=== PATIENT | female | born 1980 | race Caucasian/White ===

== ENCOUNTER 2019-03-01 20:48 | Outpatient (CLI) | payer MEDICAID, SELFPAY ==
[2019-03-01] MEDS: Lactated Ringers 1,000 ML 999 ML IV (21:20)
[2019-03-01 21:40] VITALS: BMI 36.7
[2019-03-01] MEDS: Betamethasone/Betamethasone 30 MG/5 ML Vial 12 MG IM (21:57)
[2019-03-01 22:00] LABS: Mucous, Urine 0 SEEN /hpf (<or=2+); Red Blood Cells-Urine 0 SEEN /hpf (0-5)
[2019-03-01 22:02] LABS: Color, Urine Yellow (Yellow); Glucose, Dipstick Normal (Normal); Ketone-Dipstick 50 mg/dl (Negative); Leukocyte Esterase-Dipstick Negative /ul (Negative); Nitrite-Dipstick Negative (Negative); Occult Blood-Urine Negative /ul (Negative); Protein-Dipstick Negative (Negative); Specific Gravity, Urine 1.005 (1.002-1.030); Urine Bilirubin Dipstick Negative (Negative); Urine Clarity Clear (Clear); Urine Urobilinogen Normal (Normal); Urine pH 6.5 (5.0 - 8.0)
[2019-03-01 22:04] LABS: Hematocrit 35.3 % (37-47); Hemoglobin 11.9 g/dl (12.0-15.0); Mean Corp Hgb Conc 33.7 g/gl (32-36); Mean Corpuscular Hgb 30.7 pg (27.0-32.0); Mean Platelet Vol. 10.8 fl (6.2-12.0); Platelet Count 194 K/mm3 (150-450); RBC Distribution Width CV 13.2 % (11.6-14.6); RBC Distribution Width SD 43.6 fl (35.1-43.9); Red Blood Count 3.88 M/mm3 (4.2-5.4); Scan Indicated on CBC? Y/N NO; White Blood Count 13.2 K/mm3 (4.4-11.0)
[2019-03-01 22:08] LABS: Bacteria RARE /hpf (None Seen); Squamous Epithelial Cells - UA 0-5 SEEN /hpf (5-10); White Blood Cells 0-5 SEEN /hpf (0-5)
[2019-03-01 22:43] LABS: Partial Thromboplast Time 25.4 Seconds (24.1-36.2)
[2019-03-01 22:59] LABS: ALB/GLOB Ratio 0.7 RATIO (0.9-2.4); AST(SGOT) 25 U/L (15-37); Alanine Aminotransfer ALT/SGPT 16 U/L (13-56); Albumin, Serum 2.7 g/dL (3.2-5.0); Alkaline Phosphatase 100 U/L (45-117); Anion Gap 12 (5-15); BUN 6 mg/dL (7-18); BUN/Creat Ratio 9.8 RATIO (10-20); Calcium,Total 9.2 mg/dL (8.5-10.1); Chloride 106 mmol/L (98-107); Creatinine, Serum 0.61 mg/dL (0.55-1.02); EST Glomerular Filtration Rate 116 mL/min (>60); Est Glom Filt Rate - Afr Amer 141 mL/min (>60); Estimated Creatinine Clearance 107.98 ml/min; Glucose 59 mg/dL (74-106); Protein, Total 6.7 g/dL (6.4-8.2); Sodium Level 137 mmol/L (136-145)
[2019-03-01 23:08] LABS: Group B Strep DNA By PCR Negative (Negative)
[2019-03-01 23:09] LABS: Internal Control PASS; Probe Check PASS; Specimen Processing Control PASS
[2019-03-02 07:06] LABS: Bedside Glucose 70 mg/dL (70-110)
[2019-03-02 08:55] LABS: Amphetamine Urine VISTA NEGATIVE (<1000 ng/mL); Barbiturate Urine VISTA NEGATIVE (< 200 ng/mL); Benzodiazepine Urine VISTA NEGATIVE (< 200 ng/mL); Cocaine Urine VISTA NEGATIVE (< 300 ng/mL); Ecstacy Urine VISTA NEGATIVE (< 500 ng/mL); Methadone Urine VISTA NEGATIVE (< 300 ng/mL); PCP Urine VISTA NEGATIVE (< 25 ng/mL); THC Urine VISTA NEGATIVE (< 50 ng/mL); Vista UDS pH Range 6
[2019-03-04 17:50] LABS: HEPATITIS B SURFACE AG Negative (Negative); Hep C Antibodies <0.1 s/co ratio (0.0-0.9)
[2019-03-07 01:35] LABS: Rapid Plasmin Reagin (RPR) NONREACTIVE (NONREACTIVE)
--- NOTE | 2019-03-28 12:14 | OB.TRI.HP_ITS ---
History of Present Illness Date of Service: 03/31/19 Was patient seen by the physician?: No Reason For Visit: R/O LABOR Allergies No Known Allergies Allergy (Verified 03/01/19 21:41) Laboratory Studies: Laboratory Tests 03/01/19 03/01/19 03/01/19 Range/Units 21:27 21:14 21:10 WBC (4.4-11.0) K/mm3 RBC (4.2-5.4) M/mm3 Hgb (12.0-15.0) g/dl Hct (37-47) % MCV (81-99) fL MCH (27.0-32.0) pg MCHC (32-36) g/gl RDW (11.6-14.6) % RDW Differential (35.1-43.9) fl Plt Count (150-450) K/mm3 MPV (6.2-12.0) fl PT (11.7-14.9) SECONDS INR APTT (24.1-36.2) Seconds Sodium (136-145) mmol/L Potassium (3.5-5.1) mmol/L Chloride (98-107) mmol/L Carbon Dioxide (21.0-32.0) mmol/L Anion Gap (5-15) BUN (7-18) mg/dL Creatinine (0.55-1.02) mg/dL Estim Creat Clear Calc ml/min Est GFR (MDRD) Af Amer (>60) mL/min Est GFR (MDRD) Non-Af (>60) mL/min BUN/Creatinine Ratio (10-20) RATIO Glucose (74-106) mg/dL Calcium (8.5-10.1) mg/dL Total Bilirubin (0.20-1.00) mg/dL AST (15-37) U/L ALT (13-56) U/L Alkaline Phosphatase (45-117) U/L Total Protein (6.4-8.2) g/dL Albumin (3.2-5.0) g/dL Globulin (2.2-4.2) g/dL Albumin/Globulin Ratio (0.9-2.4) RATIO Urine Color (Yellow) Urine Clarity (Clear) Urine pH (5.0 - 8.0) Ur Specific [place] (1.002-1.030) Urine Protein (Negative) mg/dl Urine Glucose (UA) (Normal) mg/dl Urine Ketones (Negative) mg/dl Urine Occult Blood (Negative) /ul Urine Nitrite (Negative) Urine Bilirubin (Negative) mg/dL Urine Urobilinogen (Normal) mg/dl Ur Leukocyte Esterase (Negative) /ul Urine RBC (0-5) /hpf Urine WBC (0-5) /hpf Ur Squamous Epith Cells (5-10) /hpf Urine Bacteria (None Seen) /hpf Urine Mucus (<or=2+) /hpf Urine Opiates Screen NEGATIVE (< 300 ng/mL) Urine Methadone Screen NEGATIVE (< 300 ng/mL) Ur Barbiturates Screen NEGATIVE (< 200 ng/mL) Ur Phencyclidine Scrn NEGATIVE (< 25 ng/mL) Ur Amphetamines Screen NEGATIVE (<1000 ng/mL) U Methamphetamin-MDMA NEGATIVE (< 500 ng/mL) U Benzodiazepines Scrn NEGATIVE (< 200 ng/mL) Urine Cocaine Screen NEGATIVE (< 300 ng/mL) U Cannabinoids Screen NEGATIVE (< 50 ng/mL) Ur Drug Screen Comment RPR (NONREACTIVE) Hep Bs Antigen (Negative) Hepatitis C Ab (EIA) (0.0-0.9) s/co ratio Group B Strep DNA (Negative) Specimen Comment POC Glucose 70 (70-110) mg/dL Blood Type Antibody Screen NEGATIVE 03/01/19 03/01/19 03/01/19 Range/Units 21:10 21:10 21:10 WBC (4.4-11.0) K/mm3 RBC (4.2-5.4) M/mm3 Hgb (12.0-15.0) g/dl Hct (37-47) % MCV (81-99) fL MCH (27.0-32.0) pg MCHC (32-36) g/gl RDW (11.6-14.6) % RDW Differential (35.1-43.9) fl Plt Count (150-450) K/mm3 MPV (6.2-12.0) fl PT 13.0 (11.7-14.9) SECONDS INR 1.0 APTT 25.4 (24.1-36.2) Seconds Sodium 137 (136-145) mmol/L Potassium 4.0 (3.5-5.1) mmol/L Chloride 106 (98-107) mmol/L Carbon Dioxide 19.0 L (21.0-32.0) mmol/L Anion Gap 12 (5-15) BUN 6 L (7-18) mg/dL Creatinine 0.61 (0.55-1.02) mg/dL Estim Creat Clear Calc 107.98 ml/min Est GFR (MDRD) Af Amer 141 (>60) mL/min Est GFR (MDRD) Non-Af 116 (>60) mL/min BUN/Creatinine Ratio 9.8 L (10-20) RATIO Glucose 59 L (74-106) mg/dL Calcium 9.2 (8.5-10.1) mg/dL Total Bilirubin 0.60 (0.20-1.00) mg/dL AST 25 (15-37) U/L ALT 16 (13-56) U/L Alkaline Phosphatase 100 (45-117) U/L Total Protein 6.7 (6.4-8.2) g/dL Albumin 2.7 L (3.2-5.0) g/dL Globulin 4.0 (2.2-4.2) g/dL Albumin/Globulin Ratio 0.7 L (0.9-2.4) RATIO Urine Color (Yellow) Urine Clarity (Clear) Urine pH (5.0 - 8.0) Ur Specific [place] (1.002-1.030) Urine Protein (Negative) mg/dl Urine Glucose (UA) (Normal) mg/dl Urine Ketones (Negative) mg/dl Urine Occult Blood (Negative) /ul Urine Nitrite (Negative) Urine Bilirubin (Negative) mg/dL Urine Urobilinogen (Normal) mg/dl Ur Leukocyte Esterase (Negative) /ul Urine RBC (0-5) /hpf Urine WBC (0-5) /hpf Ur Squamous Epith Cells (5-10) /hpf Urine Bacteria (None Seen) /hpf Urine Mucus (<or=2+) /hpf Urine Opiates Screen (< 300 ng/mL) Urine Methadone Screen (< 300 ng/mL) Ur Barbiturates Screen (< 200 ng/mL) Ur Phencyclidine Scrn (< 25 ng/mL) Ur Amphetamines Screen (<1000 ng/mL) U Methamphetamin-MDMA (< 500 ng/mL) U Benzodiazepines Scrn (< 200 ng/mL) Urine Cocaine Screen (< 300 ng/mL) U Cannabinoids Screen (< 50 ng/mL) Ur Drug Screen Comment RPR (NONREACTIVE) Hep Bs Antigen Negative (Negative) Hepatitis C Ab (EIA) <0.1 (0.0-0.9) s/co ratio Group B Strep DNA (Negative) Specimen Comment POC Glucose (70-110) mg/dL Blood Type Antibody Screen 03/01/19 03/01/19 03/01/19 Range/Units 21:10 21:10 21:10 WBC (4.4-11.0) K/mm3 RBC (4.2-5.4) M/mm3 Hgb (12.0-15.0) g/dl Hct (37-47) % MCV (81-99) fL MCH (27.0-32.0) pg MCHC (32-36) g/gl RDW (11.6-14.6) % RDW Differential (35.1-43.9) fl Plt Count (150-450) K/mm3 MPV (6.2-12.0) fl PT (11.7-14.9) SECONDS INR APTT (24.1-36.2) Seconds Sodium (136-145) mmol/L Potassium (3.5-5.1) mmol/L Chloride (98-107) mmol/L Carbon Dioxide (21.0-32.0) mmol/L Anion Gap (5-15) BUN (7-18) mg/dL Creatinine (0.55-1.02) mg/dL Estim Creat Clear Calc ml/min Est GFR (MDRD) Af Amer (>60) mL/min Est GFR (MDRD) Non-Af (>60) mL/min BUN/Creatinine Ratio (10-20) RATIO Glucose (74-106) mg/dL Calcium (8.5-10.1) mg/dL Total Bilirubin (0.20-1.00) mg/dL AST (15-37) U/L ALT (13-56) U/L Alkaline Phosphatase (45-117) U/L Total Protein (6.4-8.2) g/dL Albumin (3.2-5.0) g/dL Globulin (2.2-4.2) g/dL Albumin/Globulin Ratio (0.9-2.4) RATIO Urine Color (Yellow) Urine Clarity (Clear) Urine pH (5.0 - 8.0) Ur Specific [place] (1.002-1.030) Urine Protein (Negative) mg/dl Urine Glucose (UA) (Normal) mg/dl Urine Ketones (Negative) mg/dl Urine Occult Blood (Negative) /ul Urine Nitrite (Negative) Urine Bilirubin (Negative) mg/dL Urine Urobilinogen (Normal) mg/dl Ur Leukocyte Esterase (Negative) /ul Urine RBC (0-5) /hpf Urine WBC (0-5) /hpf Ur Squamous Epith Cells (5-10) /hpf Urine Bacteria (None Seen) /hpf Urine Mucus (<or=2+) /hpf Urine Opiates Screen (< 300 ng/mL) Urine Methadone Screen (< 300 ng/mL) Ur Barbiturates Screen (< 200 ng/mL) Ur Phencyclidine Scrn (< 25 ng/mL) Ur Amphetamines Screen (<1000 ng/mL) U Methamphetamin-MDMA (< 500 ng/mL) U Benzodiazepines Scrn (< 200 ng/mL) Urine Cocaine Screen (< 300 ng/mL) U Cannabinoids Screen (< 50 ng/mL) Ur Drug Screen Comment RPR NONREACTIVE (NONREACTIVE) Hep Bs Antigen (Negative) Hepatitis C Ab (EIA) (0.0-0.9) s/co ratio Group B Strep DNA Negative (Negative) Specimen Comment Not Reportable POC Glucose (70-110) mg/dL Blood Type O NEGATIVE Antibody Screen [facility] 03/01/19 03/01/19 Range/Units 21:10 21:10 WBC 13.2 H (4.4-11.0) K/mm3 RBC 3.88 L (4.2-5.4) M/mm3 Hgb 11.9 L (12.0-15.0) g/dl Hct 35.3 L (37-47) % MCV 91.0 (81-99) fL MCH 30.7 (27.0-32.0) pg MCHC 33.7 (32-36) g/gl RDW 13.2 (11.6-14.6) % RDW Differential 43.6 (35.1-43.9) fl Plt Count 194 (150-450) K/mm3 MPV 10.8 (6.2-12.0) fl PT (11.7-14.9) SECONDS INR APTT (24.1-36.2) Seconds Sodium (136-145) mmol/L Potassium (3.5-5.1) mmol/L Chloride (98-107) mmol/L Carbon Dioxide (21.0-32.0) mmol/L Anion Gap (5-15) BUN (7-18) mg/dL Creatinine (0.55-1.02) mg/dL Estim Creat Clear Calc ml/min Est GFR (MDRD) Af Amer (>60) mL/min Est GFR (MDRD) Non-Af (>60) mL/min BUN/Creatinine Ratio (10-20) RATIO Glucose (74-106) mg/dL Calcium (8.5-10.1) mg/dL Total Bilirubin (0.20-1.00) mg/dL AST (15-37) U/L ALT (13-56) U/L Alkaline Phosphatase (45-117) U/L Total Protein (6.4-8.2) g/dL Albumin (3.2-5.0) g/dL Globulin (2.2-4.2) g/dL Albumin/Globulin Ratio (0.9-2.4) RATIO Urine Color Yellow (Yellow) Urine Clarity Clear (Clear) Urine pH 6.5 (5.0 - 8.0) Ur Specific [place] 1.005 (1.002-1.030) Urine Protein Negative (Negative) mg/dl Urine Glucose (UA) Normal (Normal) mg/dl Urine Ketones 50 H (Negative) mg/dl Urine Occult Blood Negative (Negative) /ul Urine Nitrite Negative (Negative) Urine Bilirubin Negative (Negative) mg/dL Urine Urobilinogen Normal (Normal) mg/dl Ur Leukocyte Esterase Negative (Negative) /ul Urine RBC 0 SEEN (0-5) /hpf Urine WBC 0-5 SEEN (0-5) /hpf Ur Squamous Epith Cells 0-5 SEEN (5-10) /hpf Urine Bacteria RARE (None Seen) /hpf Urine Mucus 0 SEEN (<or=2+) /hpf Urine Opiates Screen (< 300 ng/mL) Urine Methadone Screen (< 300 ng/mL) Ur Barbiturates Screen (< 200 ng/mL) Ur Phencyclidine Scrn (< 25 ng/mL) Ur Amphetamines Screen (<1000 ng/mL) U Methamphetamin-MDMA (< 500 ng/mL) U Benzodiazepines Scrn (< 200 ng/mL) Urine Cocaine Screen (< 300 ng/mL) U Cannabinoids Screen (< 50 ng/mL) Ur Drug Screen Comment RPR (NONREACTIVE) Hep Bs Antigen (Negative) Hepatitis C Ab (EIA) (0.0-0.9) s/co ratio Group B Strep DNA (Negative) Specimen Comment POC Glucose (70-110) mg/dL Blood Type Antibody Screen Impression/Plan NST for false labor
== END 2019-03-01 22:45 | disposition home or self-care (01) ==
LOC: WPOUT 21:31 → WP 21:32
PROVIDERS: Visit Provider Obstetrics & Gynecology
DX: O47.9 False labor, unspecified (principal); Z3A.00 Weeks of gestation of pregnancy not specified
CPT/HCPCS: 96360; 36415; 59025; 59050; 80053; 80307; 81001; 82962; 85027; 85610; 85730; 86592; 86803; 86850; 86900; 87081; 87340; 87653; 96372; 99218; J7120; G0378; J0702